=== PATIENT | male | born 1975 | race Caucasian/White ===

== ENCOUNTER 2024-02-02 12:50 | Emergency (ER) | payer MEDICAID ==
[~2024-02-02] VITALS: Ht 175.3 cm; Wt 75.3 kg
[2024-02-02] MEDS ORDERED: SULF1TAB49 PO (14:34)
[2024-02-02] MEDS ORDERED: MUPI15CR12 TOP (14:34)
[2024-02-02] MEDS: CefTRIAXone 1000mg IM Kit (w/lidocaine diluent) IM ONE ×2 (14:42→15:42)
[2024-02-02] MEDS: ketorolac trometh 30MG/ML vial 30 MG/ML VIAL IM ONE (14:42)
[2024-02-02] MEDS: TETanus/Pertussis (Acell)/Diphther VAC/PF (Tdap-Adult) 0.5ml syringe IMVAC ONE (14:43)
[2024-02-02 16:25] VITALS: BP 120/65; PULSE 82; RESP 16; TEMP 98.2; O2SAT 99
== END 2024-02-02 16:29 | disposition home or self-care (01) ==
LOC: ER 12:51
DX: L02.415 Cutaneous abscess of right lower limb (principal); L03.115 Cellulitis of right lower limb
CPT/HCPCS: 90471; 90715; 96372; 99284; J0696; J1885